=== PATIENT | male | born 1960 | race Caucasian/White ===

== ENCOUNTER → 2020-04-22 | Outpatient (CLI) | payer SELFPAY | LOC: M LABSMTC 10:46 | PROVIDERS: ATTEND Pediatrics | DX: Z20.828 Contact with and (suspected) exposure to other viral communicable diseases (principal) ==

== ENCOUNTER → 2020-05-10 | Outpatient (CLI) | payer SELFPAY | LOC: M LABSMTC 10:17 | PROVIDERS: ATTEND Pediatrics | DX: Z20.822 Contact with and (suspected) exposure to COVID-19 (principal) ==

== ENCOUNTER → 2020-06-23 | Outpatient (CLI) | payer BC | LOC: M LABSMTC 14:04 | PROVIDERS: ATTEND Pediatrics | DX: Z11.52 Encounter for screening for COVID-19 (principal) ==

== ENCOUNTER → 2021-04-28 | Outpatient (CLI) | payer SELFPAY | LOC: M LABSMTC 11:23 | PROVIDERS: ATTEND Pediatrics | DX: Z11.52 Encounter for screening for COVID-19 (principal) ==